=== PATIENT | male | born 1995 | race Caucasian/White ===

== ENCOUNTER 2017-05-03 06:14 | Emergency (ER) | payer SELFPAY ==
--- NOTE | 2017-05-03 08:56 | RAD ---
LEFT ANKLE 3 VIEWS: Date: 05/03/17 COMPARISON: None. HISTORY: Injury, trauma, pain. FINDINGS: There is mild lateral soft tissue swelling. The talar dome and ankle mortise appear intact. There is no displaced fracture or evidence of dislocation seen. IMPRESSION: No fracture or dislocation. POS: [facility]
== END 2017-05-03 07:15 | disposition home or self-care (01) ==
LOC: ERS 06:14
DX: S93.402A Sprain of unspecified ligament of left ankle, initial encounter (principal); F90.9 Attention-deficit hyperactivity disorder, unspecified type; X50.9XXA Other and unspecified overexertion or strenuous movements or postures, initial encounter; Y93.01 Activity, walking, marching and hiking